=== PATIENT | female | born 1970 | race Caucasian/White ===

== ENCOUNTER → 2017-09-23 | Outpatient (CLI) | payer BC, OTHER ==
[2015-12-31 01:15] VITALS: BP 128/84
--- NOTE | 2017-09-23 15:55 | RAD ---
DATE: September 23, 2017 EXAM: DIGITAL SCREEN BILAT W/CAD HISTORY: Screening study. COMPARISON: January 04, 2015 This study was interpreted with the benefit of Computerized Aided Detection (CAD). FINDINGS: The breast parenchyma is heterogeneously dense. There are no dominant suspicious masses, suspicious microcalcifications or evidence of architectural distortion. IMPRESSION: No mammographic indicators for malignancy. BI-RADS CATEGORY: 1 NEGATIVE RECOMMENDED FOLLOW-UP: 12M 12 MONTH FOLLOW-UP PQRS compliance statement: Patient information was entered into a reminder system with a target due date September 24, 2018 for the next mammogram. Mammography is a sensitive method for finding small breast cancers, but it does not detect them all and is not a substitute for careful clinical examination. A negative mammogram does not negate a clinically suspicious finding and should not result in delay in biopsying a clinically suspicious abnormality. "Our facility is accredited by the [employer] Mammography [employer]." The patient's breast density may affect the ability of mammography to detect breast cancer. There are 4 categories of breast density, A, B, C and D. Breast density A means that most of the breast tissue is replaced with adipose tissue and therefore is not dense. Breast density B means that the breast tissue is mildly dense and scattered. Breast density C means that the breast tissue is heterogeneously dense. Breast density D means that the breast tissue is very dense. Breast densities especially C and D may decrease the sensitivity of mammography to detect breast cancer. Therefore, the patient may benefit from 3-D breast mammography (3D breast tomography) as a part of their screening mammogram. Insurance may or may not pay for this additional imaging. The patient's breast density based on today's mammogram is category C.
== END | disposition home or self-care (01) ==
LOC: MAMMO 15:09
PROVIDERS: ATTEND Physician Assistant Medical
DX: Z12.31 Encounter for screening mammogram for malignant neoplasm of breast (principal)
CPT/HCPCS: 77067

== ENCOUNTER → 2018-02-28 | Outpatient (CLI) | payer BC ==
[2015-12-31 01:15] VITALS: BP 128/84
--- NOTE | 2018-02-28 22:28 | RAD ---
EXAM: Lumbar spine, 5 views; left hip, 2 views. HISTORY: Pain. COMPARISON: None. FINDINGS: Lumbar spine: Frontal, lateral, bilateral oblique and coned sacral views of the lumbar spine are obtained. There is no listhesis. The vertebral bodies are normal in height and the disc spaces are preserved. Left hip: Frontal and frog-leg views of the left hip are obtained. There is no fracture, dislocation or subluxation. There is a suspected small bone island within the left ischium. IMPRESSION: No acute osseous finding. Electronically signed by: Opal Carvajal MD (02/28/2018 3:14 PM) [place] [id number]
== END | disposition home or self-care (01) ==
LOC: PMG 08:12
PROVIDERS: ATTEND Physician Assistant Medical
DX: M54.5 Low back pain (principal); M25.552 Pain in left hip; M53.3 Sacrococcygeal disorders, not elsewhere classified; E03.9 Hypothyroidism, unspecified
CPT/HCPCS: 72110; 73502

== ENCOUNTER → 2018-09-24 | Outpatient (CLI) | payer BC ==
[2015-12-31 01:15] VITALS: BP 128/84
--- NOTE | 2018-09-25 07:33 | RAD ---
DATE: 09/24/2018 EXAM: MAMMO JERE SCREENING BILATERAL HISTORY: Screening Mammogram COMPARISON: Mammogram 09/23/2017, 01/04/2015 This study was interpreted with the benefit of Computerized Aided Detection (CAD). The breast parenchyma is heterogeneously dense, which could reduce sensitivity of mammography. Breast parenchyma level C. FINDINGS: Bilateral digital 2-D and 3-D tomosynthesis CC and MLO views. No suspicious mass, calcification or architectural distortion. No significant change from prior examination IMPRESSION: No mammographic evidence of malignancy. Recommend routine screening mammogram in 12 months. BI-RADS CATEGORY: 1 NEGATIVE RECOMMENDED FOLLOW-UP: 12M 12 MONTH FOLLOW-UP PQRS compliance statement: Patient information was entered into a reminder system with a target due date for the next mammogram. Mammography is a sensitive method for finding small breast cancers, but it does not detect them all and is not a substitute for careful clinical examination. A negative mammogram does not negate a clinically suspicious finding and should not result in delay in biopsying a clinically suspicious abnormality. "Our facility is accredited by the [employer] Mammography [employer]."
== END | disposition home or self-care (01) ==
LOC: MAMMO 15:19
PROVIDERS: ATTEND Physician Assistant Medical
DX: Z12.31 Encounter for screening mammogram for malignant neoplasm of breast (principal)
CPT/HCPCS: 77063; 77067

== ENCOUNTER → 2019-09-29 | Outpatient (CLI) | payer BC ==
[2015-12-31 01:15] VITALS: BP 128/84
--- NOTE | 2019-09-30 09:06 | RAD ---
History: Routine screening. Technique: Bilateral digital mammographic routine views were obtained with 2-D and 3-D technique and reviewed with CAD - computer aided detection. Comparison: 09/23/2017, 09/24/2018.. Findings: Breast Tissue Density C : The breast tissue is heterogeneously dense. Scattered fibroglandular elements may obscure underlying pathology. There are no suspicious masses, microcalcifications or areas of architectural distortion. Impression: No suspicious findings. BI-RADS Category 1: Negative. Normal interval followup. Your mammogram demonstrates that you have dense breast tissue, which could hide abnormalities, and if you have other risk factors for breast cancer that have been identified, you might benefit from supplemental screening tests that may be suggested by your ordering physician. Dense breast tissue, in and of itself, is a relatively common condition. This information is not provided to cause undue concern, but rather to raise your awareness and to promote discussion with your physician regarding the presence of other risk factors, in addition to dense breast tissue. A report of your mammography results will be sent to you and your physician. You should contact your physician if you have any questions or concerns regarding this report. A mammogram does not have 100% sensitivity and therefore a negative imaging study should not delay further work up of a suspicious abnormality. The patient will receive a letter with the results in the mail. Patient information is entered into the reminder system with a target due date for the next screening mammogram. The patient will receive a reminder. "Our facility is accredited by the [employer] Mammography Program." BI-RADS 1 -- negative findings (within normal)
== END | disposition home or self-care (01) ==
LOC: MAMMO 14:40
PROVIDERS: ATTEND Physician Assistant Medical
DX: Z12.31 Encounter for screening mammogram for malignant neoplasm of breast (principal); N64.89 Other specified disorders of breast
CPT/HCPCS: 77063; 77067

== ENCOUNTER → 2020-11-10 | Outpatient (CLI) | payer BC ==
[2015-12-31 01:15] VITALS: BP 128/84
--- NOTE | 2020-11-11 15:23 | RAD ---
DATE: 11/10/2020 3:01 PM EXAM: MAMMO JERE SCREENING BILATERAL HISTORY: Screening COMPARISON: 09/29/2019 Bilateral CC and MLO views of the breasts were performed. Bilateral breast tomosynthesis was performed in CC and MLO projections. This study was interpreted with the benefit of Computerized Aided Detection (CAD). FINDINGS: Breast Density: HETERO The breast parenchyma Is heterogeneously dense, which could reduce sensitivity of mammography. Breast parenchyma level C Negative left mammogram. Focal asymmetry in the lateral middle third right breast between the 9 and 10:00 positions best appreciated on tomographic CC image 34 of 60 and tomographic image 22 of 63 on the MLO series needs additional imaging with spot compression views in the CC projection, a full-field right ML view with 3-D technique, and spot magnification views with possible ultrasound. IMPRESSION: Right breast focal asymmetry, findings for which additional imaging is advised. BI-RADS CATEGORY: 0 INCOMPLETE: NEEDS ADDITIONAL IMAGING EVALUATION AND/OR PRIOR MAMMOGRAMS FOR COMPARISON. RECOMMENDED FOLLOW-UP: ADD ADDITIONAL IMAGING The patient will be contacted to return for additional imaging and a supplemental report will follow. PQRS compliance statement: Patient information was entered into a reminder system with a target due date for the next mammogram. Mammography is a sensitive method for finding small breast cancers, but it does not detect them all and is not a substitute for careful clinical examination. A negative mammogram does not negate a clinically suspicious finding and should not result in delay in biopsying a clinically suspicious abnormality. "Our facility is accredited by the [employer] Mammography [employer]."
== END ==
LOC: MAMMO 14:58
PROVIDERS: ATTEND Physician Assistant Medical
DX: Z12.31 Encounter for screening mammogram for malignant neoplasm of breast (principal)
CPT/HCPCS: 77063; 77067

== ENCOUNTER → 2020-11-24 | Outpatient (CLI) | payer BC ==
[2015-12-31 01:15] VITALS: BP 128/84
--- NOTE | 2020-11-24 14:27 | RAD ---
PROCEDURE: MG DIAGNOSTICUNILAT MAMMO HISTORY: The patient is 50 years old and is seen for Reason: / Spl. Instructions: / History: . Call back COMPARISON: November 10, 2020 and September 29, 2019 TECHNIQUE: Right breast ML view with paula. Spot magnification views of the right breast MLO and cc DENSITY: The breast parenchyma is heterogeneously dense. This may lower the sensitivity of mammograph y. FINDINGS: Previously identified asymmetry within the right lateral breast is less apparent on spot vi ews. No suspicious microcatheter calcification. IMPRESSION: Previously identified asymmetry within the right breast is less apparent on spot compression views, l ikely overlapping fibroglandular tissue. Recommend return to annual screening. Recommend annual screening mammograms per [place] [employer] guidelines. She will be due in one year. BI-RADS category 2 Benign Patient entered into a reminder system for annual screening mammogram. Electronically signed by: Chris Kaminski DO (11/24/2020 2:25 PM) [id number]
== END ==
LOC: MAMMO 13:14
PROVIDERS: ATTEND Physician Assistant Medical
DX: R92.8 Other abnormal and inconclusive findings on diagnostic imaging of breast (principal)
CPT/HCPCS: 77065

== ENCOUNTER 2021-02-14 06:30 | Emergency (ER) | payer BC ==
[~2021-02-14] VITALS: Ht 152.4 cm; Wt 56.0 kg
[2021-02-14 06:50] VITALS: BP 144/100
[2021-02-14] MEDS ORDERED: ASPIRIN 325 MG TABLET PO ONE (07:00)
[2021-02-14] MEDS ORDERED: METOCLOPRAMIDE HCL 10 MG/2 ML VIAL. IVP ONE (07:15)
[2021-02-14] MEDS ORDERED: KETOROLAC 15 MG/ML VIAL. IVP ONE (07:15)
[2021-02-14] MEDS ORDERED: IV NORMAL SALINE 1,000ML 1,000 ML IV ONE (07:15)
[2021-02-14 07:59] LABS: BASO % 0 % (0-3); EOS % 0 % (0-3); HEMATOCRIT 37.9 % (36.0-47.0); LYMPH # 2.5 x10^3/uL (1.0-4.8); LYMPH % 22 % (24-48); MEAN CORPUSCULAR HEMOGLOBIN 31 pg (25-35); MEAN CORPUSCULAR HGB CONC 34 g/dL (31-37); MEAN CORPUSCULAR VOLUME 90 fL (79-100); MONO % 9 % (0-9); NEUT # 7.9 x10^3uL (1.8-7.7); NEUT % 69 % (31-73); PLATELET COUNT 433 x10^3/uL (140-400); RED BLOOD COUNT 4.21 x10^6/uL (3.50-5.40); RED CELL DISTRIBUTION WIDTH 13.4 % (11.5-14.5); WHITE BLOOD COUNT 11.5 x10^3/uL (4.0-11.0)
[2021-02-14 08:07] LABS: POTASSIUM ISTAT 3.9 mmol/L (3.5-5.0)
[2021-02-14 08:08] LABS: HEMOGLOBIN ISTAT 12.2 gm/dL
[2021-02-14 08:19] LABS: BACTERIA,URINE 0 /HPF (0-FEW); CLARITY,URINE HAZY; COLOR,URINE RED; RBC,URINE >40 /HPF (0-2); SQUAMOUS EPITHELIAL CELL,UR FEW /LPF; WBC,URINE 0 /HPF (0-4)
--- NOTE | 2021-02-14 08:50 | RAD ---
Exam: CT abdomen/pelvis without intravenous contrast Indication: Left flank pain, kidney stone, hematuria Comparison: None Technique: Helical CT imaging performed of the abdomen and pelvis without the use of intravenous cont rast. Sagittal and coronal reformats were obtained. One or more of the following individualized dose reduction techniques were utilized for this examinat ion: 1. Automated exposure control 2. Adjustment of the mA and/or kV according to patient size 3. Use of iterative reconstruction technique. Findings: Inherently limited evaluation without intravenous contrast. Lower chest: Normal. Liver: Subcentimeter hypodensity in the left hepatic lobe is likely a simple cyst. Gallbladder/Biliary Tree: Normal. Pancreas: Normal. Spleen: Normal. Adrenal Glands: Normal. Kidneys/Ureters/Bladder: There is a 5 mm calcification in the proximal left ureter resulting in mild left hydronephrosis the distal left ureter is normal. Right kidney and right ureter are normal. There is no nephrolithiasis. The bladder is normal. Reproductive Organs: Uterus is anteverted. No adnexal mass. Stomach, small bowel, and colon: The stomach and small bowel are normal. Colon and appendix are huber l. Vasculature: No aortic aneurysm. Lymph Nodes: No lymphadenopathy. Peritoneum and retroperitoneum: No free fluid or free air. Bones: No acute osseous abnormality. Impression: Mild left hydronephrosis due to a 5 mm calculus in the proximal left ureter. Electronically signed by: Geraldine England MD (02/14/2021 8:48 AM) [id number]
[2021-02-14] MEDS ORDERED: TAMSULOSIN 0.4 MG CAP.ER.24H. PO ONE (09:00)
[2021-02-14] MEDS ORDERED: TAMS0.4C97 PO (09:06)
[2021-02-14] MEDS ORDERED: OXYC1TAB15 PO (09:06)
[2021-02-14] MEDS ORDERED: ONDA4TAB12 PO (09:06)
--- NOTE | 2021-02-14 09:06 | PHYS DOC ---
Past History Past Medical History: Kidney Stones, Other Past Surgical History: Other Additional Past Surgical Histo: uterine ablation Smoking: Non-smoker Alcohol Use: Rarely Drug Use: None General Adult EDM: Chief Complaint: FLANK PAIN HPI: HPI: 50-year-old female presents with report of left-sided flank pain with radiation to abdomen which has been ongoing for the past 4 days. Patient reports pain is intermittent in nature. Reports history of prior kidney stones. Reports today noticed some hematuria. Patient reports symptoms consistent with prior kidney stone issues. Patient reports has been able to pass prior stones without surgical intervention. Denies fever or chills. Denies trauma. Patient reports initially she thought she might be constipated and therefore took a Dulcolax on . Reports normal bowel movement. Patient reports symptoms have continued. Review of Systems: Review of Systems: Constitutional: Denies fever or chills Eyes: Denies redness or eye pain HENT: Denies nasal congestion or sore throat Respiratory: Denies cough or shortness of breath Cardiovascular: Denies chest pain or palpitations GI: Reports abdominal pain, nausea, and vomiting : Denies dysuria; reports hematuria Musculoskeletal: Reports left flank/back pain; denies joint pain Integument: Denies rash or skin lesions Neurologic: Denies headache, focal weakness or sensory changes Complete systems were reviewed and found to be within normal limits, except as documented in this note. Current Medications: Current Meds: Current Medications Medications (Trade) Dose Ordered Sig/[facility] Start Time Stop Time Status Last Admin Dose Admin Aspirin (Paulette Aspirin) 325 mg 1X ONCE 02/14/21 07:00 02/14/21 06:48 DC Fentanyl Citrate (Fentanyl 2ml Vial) 50 mcg 1X ONCE 02/14/21 07:15 02/14/21 07:16 DC 02/14/21 07:36 50 MCG Ketorolac Tromethamine (Toradol 15mg Vial) 15 mg 1X ONCE 02/14/21 07:15 02/14/21 07:16 DC 02/14/21 07:33 15 MG Metoclopramide HCl (Reglan Vial) 10 mg 1X ONCE 02/14/21 07:15 02/14/21 07:16 DC 02/14/21 07:34 10 MG Sodium Chloride 1,000 ml @ 1,000 mls/hr 1X ONCE 02/14/21 07:15 02/14/21 08:14 DC 02/14/21 07:33 1,000 MLS/HR Tamsulosin HCl (Flomax) 0.4 mg 1X ONCE 02/14/21 09:00 02/14/21 09:01 DC Allergies: Allergies: Allergies Coded Allergies Type Severity Reaction Last Updated Verified No Known Drug Allergies 12/31/15 No Physical Exam: PE: Constitutional: Well developed, well nourished, appears uncomfortable, non-toxic appearance HENT: Normocephalic, atraumatic Eyes: Conjunctiva normal, no discharge Neck: Normal range of motion, supple Lungs & Thorax: No respiratory distress, equal chest rise and fall Abdomen: Soft, left lower quadrant tenderness, left lower quadrant guarding, no distention Skin: Warm, dry, no erythema, no rash Back: No tenderness, left CVA tenderness Extremities: No tenderness, ROM intact, no edema Neurologic: Alert and oriented X 3, no focal deficits noted Psychologic: Affect normal, judgment normal Current Patient Data: Labs: Laboratory Tests Test 02/14/21 06:50 02/14/21 07:35 Urine Collection Type Unknown Urine Color Red Urine Clarity Hazy Urine pH Urine Specific [place] Urine Protein (NEG-TRACE) Urine Glucose (UA) mg/dL (NEG) Urine Ketones (Stick) mg/dL (NEG) Urine Blood (NEG) Urine Nitrite (NEG) Urine Bilirubin (NEG) Urine Urobilinogen Dipstick mg/dL (0.2 mg/dL) Urine Leukocyte Esterase (NEG) Urine RBC >40 /HPF (0-2) Urine WBC 0 /HPF (0-4) Urine Squamous Epithelial Cells Few /LPF Urine Bacteria 0 /HPF (0-FEW) White Blood Count 11.5 x10^3/uL (4.0-11.0) H Red Blood Count 4.21 x10^6/uL (3.50-5.40) Hemoglobin 13.0 g/dL (12.0-15.5) POC Hemoglobin 12.2 gm/dL Hematocrit 37.9 % (36.0-47.0) POC Hematocrit 36 % Mean Corpuscular Volume 90 fL (79-100) Mean Corpuscular Hemoglobin 31 pg (25-35) Mean Corpuscular Hemoglobin Concent 34 g/dL (31-37) Red Cell Distribution Width 13.4 % (11.5-14.5) Platelet Count 433 x10^3/uL (140-400) H Neutrophils (%) (Auto) 69 % (31-73) Lymphocytes (%) (Auto) 22 % (24-48) L Monocytes (%) (Auto) 9 % (0-9) Eosinophils (%) (Auto) 0 % (0-3) Basophils (%) (Auto) 0 % (0-3) Neutrophils # (Auto) 7.9 x10^3uL (1.8-7.7) H Lymphocytes # (Auto) 2.5 x10^3/uL (1.0-4.8) Monocytes # (Auto) 1.0 x10^3/uL (0.0-1.1) Eosinophils # (Auto) 0.0 x10^3/uL (0.0-0.7) Basophils # (Auto) 0.0 x10^3/uL (0.0-0.2) POC Sodium 143 mmol/L (135-145) POC Potassium 3.9 mmol/L (3.5-5.0) POC Chloride 107 mmol/L (98-110) POC Total CO2 20 mmol/L (23-32) L Anion Gap 20 mmol/L (6-14) H POC Blood Urea Nitrogen 16 mg/dL (8-26) POC Creatinine 1.0 mg/dL (0.5-1.4) Glucose Level 109 mg/dL (60-99) H POC Ionized Calcium (Gladis) 1.36 mmol/L (1.13-1.32) H Vital Signs: Vital Signs Date Time Temp Pulse Resp B/P (MAP) Pulse Ox O2 Delivery O2 Flow Rate FiO2 02/14/21 07:36 18 100 02/14/21 06:50 98.2 90 144/100 (115) EKG: EKG: [] Radiology/Procedures: Radiology/Procedures: PROCEDURE: CT ABDOMEN PELVIS WO CONTRAST Exam: CT abdomen/pelvis without intravenous contrast Indication: Left flank pain, kidney stone, hematuria Comparison: None Technique: Helical CT imaging performed of the abdomen and pelvis without the use of intravenous contrast. Sagittal and coronal reformats were obtained. One or more of the following individualized dose reduction techniques were utilized for this examination: 1. Automated exposure control 2. Adjustment of the mA and/or kV according to patient size 3. Use of iterative reconstruction technique. Findings: Inherently limited evaluation without intravenous contrast. Lower chest: Normal. Liver: Subcentimeter hypodensity in the left hepatic lobe is likely a simple cyst. Gallbladder/Biliary Tree: Normal. Pancreas: Normal. Spleen: Normal. Adrenal Glands: Normal. Kidneys/Ureters/Bladder: There is a 5 mm calcification in the proximal left ureter resulting in mild left hydronephrosis the distal left ureter is normal. Right kidney and right ureter are normal. There is no nephrolithiasis. The bladder is normal. Reproductive Organs: Uterus is anteverted. No adnexal mass. Stomach, small bowel, and colon: The stomach and small bowel are normal. Colon and appendix are normal. Vasculature: No aortic aneurysm. Lymph Nodes: No lymphadenopathy. Peritoneum and retroperitoneum: No free fluid or free air. Bones: No acute osseous abnormality. Impression: Mild left hydronephrosis due to a 5 mm calculus in the proximal left ureter. Electronically signed by: Geraldine England MD (02/14/2021 8:48 AM) [id number] Heart Score: C/O Chest Pain: N/A Course & Med Decision Making: Course & Med Decision Making Pertinent Labs and Imaging studies reviewed. (See chart for details) Patient presents with HPI and physical exam concerning for kidney stone. Reports history of prior stones which patient was able to pass on her own. Symptomatic treatment provided. IV fluid hydration given. Labs obtained and posted to chart. UA without signs of infection but significant hematuria. BUN/creatinine stable. CT with proximal left-sided ureteral stone measuring 5 mm with mild hydronephrosis. Flomax provided. Patient stable for discharge with outpatient follow-up with PCP/urologist. Discussed findings and plan with patient and spouse, who acknowledge understanding and agreement. Armidaon Disclaimer: Chetan Disclaimer: This electronic medical record was generated, in whole or in part, using a voice recognition dictation system. Departure Departure: Impression: Primary Impression: Kidney stone on left side Disposition: 01 HOME / SELF CARE / HOMELESS Condition: STABLE Referrals: LIZET MITCHELL (PCP) Patient Instructions: Diet for Kidney Stones, Kidney Stones, [id number] Additional Instructions: Increase fluid hydration. Take over the counter Aleve or Ibuprofen three times daily for pain in addition to prescribed medications. Please follow with Urology. Call you insurance or PCP for a referral. Scripts Tamsulosin Hcl (FLOMAX) 0.4 Mg Cap.er.24h 1 CAP PO DAILY for Kidney stone, #10 CAP Prov: FLORENCE HENRIQUEZ DO 02/14/21 Oxycodone Hcl/Acetaminophen (PERCOCET 5-325 MG TABLET ) 1 Each Tablet 0.5-1 TAB PO PRN Q6HRS PRN for PAIN, #14 TAB Prov: FLORENCE HENRIQUEZ DO 02/14/21 Ondansetron (ONDANSETRON ODT) 4 Mg Tab.rapdis 1 TAB PO PRN Q6-8HRS PRN for NAUSEA, #16 TAB Prov: FLORENCE HENRIQUEZ DO 02/14/21 FLORENCE HENRIQUEZ DO Feb 14, 2021 09:06
[2021-02-14 10:16] LABS: ALBUMIN 4.4 g/dL (3.4-5.0); ALBUMIN/GLOBULIN RATIO 1.4 (1.0-1.7); ALK PHOS 118 U/L (46-116); BLOOD UREA NITROGEN 17 mg/dL (7-20); BUN/CREATININE RATIO 17 (6-20); CALCIUM 10.3 mg/dL (8.5-10.1); GFR 58.7; GLUCOSE 104 mg/dL (70-99); TOTAL BILIRUBIN 0.4 mg/dL (0.2-1.0); TOTAL PROTEIN 7.6 g/dL (6.4-8.2)
[2021-02-14 10:17] LABS: ALT (SGPT) 39 U/L (14-59); ANION GAP 16 (6-14); AST (SGOT) 23 U/L (15-37); CARBON DIOXIDE 21 mmol/L (21-32); CHLORIDE 107 mmol/L (98-107); LIPASE 70 U/L (73-393); MAGNESIUM 2.5 mg/dL (1.8-2.4); SODIUM 144 mmol/L (136-145)
== END 2021-02-14 09:20 | disposition home or self-care (01) ==
LOC: ER 06:30
DX: N13.2 Hydronephrosis with renal and ureteral calculous obstruction (principal); Z87.442 Personal history of urinary calculi
CPT/HCPCS: 36415; 74176; 80047; 80053; 81001; 82553; 83690; 83735; 85025; 96361; 96374; 96375; 99284; J1885; J2765; J3010; J7030

== ENCOUNTER → 2021-02-17 | Outpatient (CLI) | payer BC ==
[2021-02-14 06:50] VITALS: BP 144/100
[~2021-02-17] MED LIST: ONDA4TAB12 PO; OXYC1TAB15 PO; TAMS0.4C97 PO
--- NOTE | 2021-02-17 13:22 | RAD ---
Examination: CT of the abdomen pelvis without contrast HISTORY: History of renal stone follow-up COMPARISON: 02/14/2021 TECHNIQUE: Axial CT images of the abdomen pelvis were performed without contrast. Coronal and sagitta l reformats are performed Exposure: One or more of the following individualized dose reduction techniques were utilized for thi s examination: 1. Automated exposure control 2. Adjustment of the mA and/or kV according to patient size 3. Use of iterative reconstruction technique FINDINGS: 3 mm nodule left lower lobe of the lung. No evidence of free air identified in the abdomen. The evalu ation of the solid organs is limited due to lack of IV contrast. The evaluation of bowel is limited d ue to lack of oral contrast. The visualized noncontrasted liver, spleen, adrenals grossly appears unr emarkable. The gallbladder is mildly distended. The stomach is mildly distended. The visualized pancreas grossly appears unremarkable. Small bowel is nondilated. Feces and gas noted in the colon. 6 mm calculus in the left proximal ureter with mild left hydronephrosis similar to prio r exam. Urinary bladder is mildly distended. No evidence of lytic or destructive lesion. IMPRESSION: 1. 6 mm calculus proximal left ureter with mild left-sided hydronephrosis unchanged. 2. 3 mm nodule left lower lobe of the lung. Follow-up per [employer]ischner Society guidelines with a follow -up CT in 12 months. Electronically signed by: Kennedy Valentin MD (02/17/2021 1:20 PM) [id number]
== END ==
LOC: CT 12:42
PROVIDERS: ATTEND Physician Assistant Medical
DX: N13.2 Hydronephrosis with renal and ureteral calculous obstruction (principal); R91.1 Solitary pulmonary nodule; K82.8 Other specified diseases of gallbladder; N32.89 Other specified disorders of bladder
CPT/HCPCS: 74176

== ENCOUNTER → 2022-01-04 | Outpatient (CLI) | payer BC, OTHER ==
--- NOTE | 2022-01-04 11:08 | RAD ---
Bilateral digital screening 2-D and 3-D (tomosynthesis) mammogram: Reason for examination: Routine screening. Comparison is made to previous mammograms from 09/23/2017, 09/24/2018, 09/29/2019, 11/10/2020. Bilateral mammograms in CC and oblique projections were obtained with 2-D imaging and 3-D tomosynthes is imaging and reviewed on the workstation. Interpretation was made with the benefit of CAD. Findings: Breast density: Category C. The breasts are heterogeneously dense, which may obscure small masses. There are no suspicious masses, malignant appearing calcifications or architectural distortion. Impression: No evidence of malignancy. ASSESSMENT: BI-RADS 1. Negative. Recommendations: Routine screening mammograms. This patient's information has been entered into a reminder system for the patient to be notified wit h the results of her examination and a target date for the next mammogram. Your patient's mammogram demonstrates that she has dense breast tissue (breast density category C or D), which could hide abnormalities, and if she has other risk factors for breast cancer that have bee n identified, she might benefit from supplemental screening tests that may be suggested by you as her ordering physician. Dense breast tissue, in and of itself, is a relatively common condition. Therefo re, this information is not provided to cause undue concern, but rather to raise your awareness and t o promote discussion with your patient regarding the presence of other risk factors, in addition to d ense breast tissue. Electronically signed by: Mel Mitchell MD (01/04/2022 11:05 AM) [id number]
== END ==
LOC: MAMMO 08:22
PROVIDERS: ATTEND Physician Assistant Medical
DX: Z12.31 Encounter for screening mammogram for malignant neoplasm of breast (principal)
CPT/HCPCS: 77063; 77067

== ENCOUNTER → 2022-01-23 | Outpatient (CLI) | payer OTHER ==
--- NOTE | 2022-01-23 14:31 | RAD ---
Exam: XR LT TOE 2+ VIEWS History: Injured fifth digit years ago Comparison: None. Findings: Osseous mineralization is normal. No acute fracture or dislocation. Incidental fused mid and distal p halanges of the small toe. Mild degenerative changes of the first metatarsal phalangeal joint. Soft t issues are unremarkable. Impression: 1. No significant abnormalities at the fifth toe. 2. Mild degenerative changes at the first MTP. Electronically signed by: Bandar Alomdovar MD (01/23/2022 2:28 PM) [id number]
== END ==
LOC: RAD 10:13
PROVIDERS: ATTEND Physician Assistant Medical
DX: M18.12 Unilateral primary osteoarthritis of first carpometacarpal joint, left hand (principal)
CPT/HCPCS: 73660